=== PATIENT | male | born 1960 | race Caucasian/White ===

== ENCOUNTER 2019-04-20 15:58 | Inpatient (IN) ==
[2019-04-20] MEDS ORDERED: DIPRIVAN 1% ONE (17:35)
[2019-04-20] MEDS ORDERED: AMIDATE ONE (17:35)
[2019-04-20] MEDS ORDERED: DIPRIVAN 1% IV ONE ×2 (17:42→18:50)
[2019-04-20] MEDS ORDERED: QUELICIN ONE (17:43)
--- NOTE | 2019-04-20 17:49 | PROVIDER DOCUMENTATION ---
[id number] Abuse/Overdose - General Chief Complaint: Overdose Stated Complaint: DELIRIUM Time Seen by Provider: 04/20/19 17:40 Source: EMS Unable to obtain history due to:: altered Allergies/Adverse Reactions: Allergies Allergy/AdvReac Type Severity Reaction Status Date / Time Penicillins Allergy Unknown Verified 04/20/19 18:22 Home Medications: Home Medication List Medication Instructions Recorded Confirmed Last Taken Type Unobtainable [Home Meds 04/20/19 04/20/19 Unknown History Unobtainable] - History of Present Illness-Drug/Alcohol Nature of Presenting Problem: EMS reports that they were called to the patients home and 1500 today, and patient was acting nonsensical and destructive. The patients ex- reports that he does meth regularly and she believed that he had done meth and cocaine today. The ex- also reported that he has a prescription for opioids. The patient required some sedation via EMS with 500mg of ketamine. On arrival the patient was sedated but saturating >90%. On transfer to the room the patient woke up from sedation and was severely agitated and there was concern he would hurt himself or staff so patient was intubated. This episode of drinking or use began:: other (Today) - Substance Abuse Substance Use: reports: alcohol, marijuana, amphetamines Review of Systems - Adult - REVIEW OF SYSTEMS - ADULT ROS:: unobtainable per condition Constitutional: reports: other (unable to obtain per condition) Past History - Adult - PAST MEDICAL HISTORY-ADULT Review of Records: reports: Old Records Reviewed Physical Exam-General - PHYSICAL EXAM-ADULT Initial Vital Signs Reviewed: Yes - CONSTITUTIONAL General Appearance: obtunded - EYES Eyes: other (pupils equal, no scleral icterus) - HEAD, EARS, NOSE, MOUTH & THROAT HENMT: moist mucous membranes - NECK Neck: normal inspection - CARDIOVASCULAR Cardiovascular: regular rate, rhythm, other (2+ LE edema) - SKIN Integumentary: normal color, other (diaphoretic) - NEUROLOGIC Neurologic: grossly normal - PSYCHIATRIC Psych/Mental Status: other (agitated and requiring) Progress - PLAN OF CARE/RESULTS Progress/Plan/Lab Results: Vital Signs - 8 hr 04/20/19 17:05 04/20/19 17:38 04/20/19 17:39 Temperature 98.6 F Pulse Rate 98 H Respiratory Rate 15 Blood Pressure 110/60 139/63 O2 Sat by Pulse Oximetry 100 99 99 04/20/19 17:40 04/20/19 17:42 04/20/19 17:44 Temperature Pulse Rate 114 H 112 H 109 H Respiratory Rate 14 35 H 18 Blood Pressure 139/59 148/60 131/51 O2 Sat by Pulse Oximetry 100 100 99 04/20/19 17:46 04/20/19 17:48 04/20/19 17:50 Temperature Pulse Rate 106 H 107 H 106 H Respiratory Rate 18 19 23 Blood Pressure 125/53 119/51 85/52 O2 Sat by Pulse Oximetry 99 99 96 04/20/19 17:52 04/20/19 17:54 04/20/19 17:56 Temperature Pulse Rate 107 H 108 H 105 H Respiratory Rate 19 19 18 Blood Pressure 105/55 131/58 120/61 O2 Sat by Pulse Oximetry 96 100 100 04/20/19 18:00 04/20/19 18:02 Temperature Pulse Rate 103 H Respiratory Rate 18 Blood Pressure 108/54 O2 Sat by Pulse Oximetry 100 98 Laboratory Results - last 24 hr 04/20/19 04/20/19 04/20/19 18:15 18:15 18:15 WBC 7.35 RBC 4.16 L Hgb 12.0 L Hct 35.1 L MCV 84.4 MCH 28.8 MCHC 34.2 RDW Std Deviation 15.0 H Plt Count 96 L MPV 10.1 Immature Gran % (Auto) 0.0 Neut % (Auto) 82.6 H Lymph % (Auto) 9.1 L Houghton % (Auto) 6.4 Eos % (Auto) 1.6 Baso % (Auto) 0.3 Immature Gran # (Auto) 0.00 Neut # (Auto) 6.07 Lymph # (Auto) 0.67 L Houghton # (Auto) 0.47 Eos # (Auto) 0.12 Baso # (Auto) 0.02 Sodium 140 Potassium 4.3 Chloride 103 Carbon Dioxide 17 L Anion Gap 20 BUN 21 Creatinine 1.4 H Estimated GFR/1.73 m2 45 BUN/Creatinine Ratio 15 Glucose 117 H Calculated Osmolality 283 Calcium 8.7 L Total Bilirubin 1.46 H AST 102 H ALT 53 H Alkaline Phosphatase 78 Troponin T < 0.010 Total Protein 6.4 Albumin 3.8 Globulin 2.6 Albumin/Globulin Ratio 1.5 Plasma Lactate 04/20/19 18:15 WBC RBC Hgb Hct MCV MCH MCHC RDW Std Deviation Plt Count MPV Immature Gran % (Auto) Neut % (Auto) Lymph % (Auto) Houghton % (Auto) Eos % (Auto) Baso % (Auto) Immature Gran # (Auto) Neut # (Auto) Lymph # (Auto) Houghton # (Auto) Eos # (Auto) Baso # (Auto) Sodium Potassium Chloride Carbon Dioxide Anion Gap BUN Creatinine Estimated GFR/1.73 m2 BUN/Creatinine Ratio Glucose Calculated Osmolality Calcium Total Bilirubin AST ALT Alkaline Phosphatase Troponin T Total Protein Albumin Globulin Albumin/Globulin Ratio Plasma Lactate 6.1 H* Orders Category Date Time Status Cardiac Monitoring DIRECTED Care 04/20/19 19:08 Active Stewart Cath Insertion ORDERED Care 04/20/19 19:12 Active IV Insertion ORDERED Care 04/20/19 19:08 Active IV Insertion ORDERED Care 04/20/19 19:12 Active Intake and Output-Strict ORDERED Care 04/20/19 19:12 Active Notify MD of + Sepsis Screen NOW Care 04/20/19 19:08 Active Notify MD/PA/[employer]PER[employer]OR for exam NOW Care 04/20/19 19:12 Active Notify Physician As Ordered Care 04/20/19 19:08 Active Repeat Vital Signs .Blood Pressure Care 04/20/19 19:12 Active Repeat Vital Signs .Heart Rate Care 04/20/19 19:12 Active Repeat Vital Signs .Oxygen Saturation Care 04/20/19 19:12 Active Repeat Vital Signs .Respiratory Rate Care 04/20/19 19:12 Active Repeat Vital Signs .Temp Care 04/20/19 19:12 Active CHEST-PORTABLE [RAD] Stat Exams 04/20/19 17:41 Completed cxr [CHEST-1 VIEW] [RAD] Stat Exams 04/20/19 18:26 Completed ABG [RESP] Routine Lab 04/20/19 19:09 Ordered BLOOD CULTURE [BLDCUL] Stat Lab 04/20/19 18:23 Ordered BLOOD CULTURE [BLDCUL] Stat Lab 04/20/19 19:08 Uncollected CBC WITH DIFF [HEME] Stat Lab 04/20/19 18:15 Completed CBC WITH DIFF [HEME] Stat Lab 04/20/19 19:08 Uncollected CK PROFILE [SP CHEM] Stat Lab 04/20/19 19:08 Uncollected COMPREHENSIVE METABOLIC PANEL [CHEM] Stat Lab 04/20/19 18:15 Completed COMPREHENSIVE METABOLIC PANEL [CHEM] Stat Lab 04/20/19 19:08 Uncollected LACTATE, PLASMA [CHEM] Q3H Lab 04/20/19 19:15 Uncollected LACTATE, PLASMA [CHEM] Q3H Lab 04/20/19 22:15 Uncollected LACTATE, PLASMA [CHEM] Q3H Lab 04/21/19 01:15 Uncollected LACTATE, PLASMA [CHEM] Stat Lab 04/20/19 18:15 Completed LACTATE, PLASMA [CHEM] Timed Lab 04/20/19 19:12 Uncollected MAGNESIUM [CHEM] Stat Lab 04/20/19 19:08 Uncollected PROTIME WITH INR [COAG] Stat Lab 04/20/19 19:08 Uncollected PTT [COAG] Stat Lab 04/20/19 19:08 Uncollected TROPONIN T Stat Lab 04/20/19 18:15 Completed TROPONIN T Stat Lab 04/20/19 19:08 Uncollected URINALYSIS W/POSS RFLX CULT [URINALYSIS] Stat Lab 04/20/19 19:08 Uncollected URINE DRUG SCREEN Stat Lab 04/20/19 17:52 Uncollected 0.9% Sodium Chloride Inj [Ns] 1,000 ml Med 04/20/19 19:05 Active IV 999 mls/hr 0.9% Sodium Chloride Inj [Ns] 1,000 ml Med 04/20/19 19:10 Discontinued IV As Directed mls/hr 0.9% Sodium Chloride Inj [Ns] 100 ml Med 04/20/19 19:15 Active Vasopressin [Pitressin] 40 unit IV As Directed mls/hr 0.9% Sodium Chloride Inj [Ns] 500 ml Med 04/20/19 19:10 Active IV 999 mls/hr 0.9% Sodium Chloride Inj [Ns] 80 ml Med 04/20/19 18:45 Active Fentanyl 1,000 microgm IV As Directed mls/hr CefEPIME [Maxipime] 2 gm Med 04/20/19 19:10 Active 0.9% Sodium Chloride Inj [Ns] 100 ml IV NOW Dextrose 5%-0.45% NaCl Inj [D5 1/2 Ns] 250 ml Med 04/20/19 19:15 Active Norepinephrine [Levophed] 8 mg IV As Directed mls/hr Dextrose 5%-Water Inj [D5w] 250 ml Med 04/20/19 19:15 Active Epinephrine 8 mg IV As Directed mls/hr Etomidate [Amidate] Med 04/20/19 17:51 Discontinued 10 mg IV NOW ONE Etomidate [Amidate] Med 04/20/19 17:35 Discontinued 40 mg .ROUTE .STK-MED ONE Propofol [Diprivan 1%] Med 04/20/19 17:42 Discontinued 100 mg IV STAT ONE Propofol [Diprivan 1%] Med 04/20/19 18:50 Discontinued 100 mg IV STAT ONE Propofol [Diprivan 1%] Med 04/20/19 17:35 Discontinued 200 mg .ROUTE .STK-MED ONE Propofol [Diprivan 1%] Med 04/20/19 17:45 Active 1,000 mg in 100 ml IV As Directed mls/hr Succinylcholine [Quelicin] Med 04/20/19 17:54 Discontinued 100 mg IV NOW ONE Succinylcholine [Quelicin] Med 04/20/19 17:43 Discontinued 200 mg .ROUTE .STK-MED ONE Vancomycin 1 gm/Ns Med 04/20/19 19:12 Active 1 gm in 250 ml IV NOW Oxygen Device Stat Oth 04/20/19 19:08 Active Ventilator Order Stat Oth 04/20/19 18:00 Active EKG [EKG] Stat Ther 04/20/19 17:54 Ordered Result Diagrams: 04/20/19 18:15 04/20/19 18:15 - REASSESSMENT Reassessment #1 Status: other (Patient intubated and sedated. Patient underwent successful intubation. Continuing sedation with propofol. Labs testing pending.) Reassessment #2 Status: other (Pt awoke from sedation and needed restraining and further propofol at approximately 18:45. Patient sedated with fentynl and propofol drip. Lactate noted at 6.1 with tachycardia. Patient placed in sepsis protocol and abx and fluids given. Case discussed with hospitalist and patient accepted for admission.) Procedures - INTUBATION Time of Intubation: 17:40 Intubation Method: orotracheal Equipment: ETT Tube Size (cm): 8.0 Pretreated with 100% Oxygen?: Yes Breath Sounds after Intubation: equal ETT Primary Tube Confirmation: Capnometry CO2 Change, Placement re-confirmed wit h CXR after reposition Intubation Complications: no complications Vent Settings: See Respiratory Therapy Notes Departure - Departure Date of Disposition Decision: 04/20/19 Time of Disposition Decision: 19:24 DIAGNOSIS: Drug abuse Altered mental state Qualifiers: Altered mental status type: unspecified Qualified Code(s): R41.82 - Altered mental status, unspecified Overdose Qualifiers: Encounter type: initial encounter Injury intent: undetermined intent Qualified Code(s): T50.904A - Poisoning by unspecified drugs, medicaments and biological substances, undetermined, initial encounter Disposition: ADMITTED INPATIENT 09 Certified Medical Emergency: Emergent Condition: Serious - Critical Care Note This patient required my direct & personal management of CC.: Yes Attestation - Physician/ MACARIO Attestation Patient care was provided by Advanced Practice Provider:: No The physician spent face to face time with patient:: Yes Advanced Practice Provider documentation review:: Supervising physician onsite a nd consulted in the evaluation and care of this patient. The physician did have a face to face encounter with the patient.
[2019-04-20] MEDS ORDERED: AMIDATE IV ONE (17:51)
[2019-04-20] MEDS ORDERED: QUELICIN IV ONE (17:54)
--- NOTE | 2019-04-20 18:00 | Diag Imaging Result Doc PS360 ---
EXAM: CHEST-PORTABLE 04/20/2019 HISTORY: ET tube placement TECHNIQUE: AP portable at 1752 COMMENT: There is an endotracheal tube with its tip at the thoracic inlet and an NG tube which passes to the level of the esophagogastric junction. This is not clearly in the stomach. The inspiration is suboptimal. There is no definite evidence of focal pulmonary opacity. The heart size and primary vascularity are within normal limits. IMPRESSION: NG tube not completely in the stomach. Endotracheal tube in good position. Electronically signed by uRsh Cortes 04/20/2019 5:57 PM
[2019-04-20] MEDS: DIPRIVAN 1% 1,000 MG/100 ML BOTTLE IV SCH ×2 (18:02→23:04)
[2019-04-20 18:43] LABS: BASO# 0.02 X1000 (0.0-0.2); BASO% 0.3 % (0.0-0.8); EOS# 0.12 X1000 (0.0-0.7); EOS% 1.6 % (0.0-10.0); HEMATOCRIT 35.1 % (42.0-52.0); LYMPH# 0.67 X1000 (1.2-3.4); LYMPH% 9.1 % (20.5-51.1); MCH 28.8 PG (27-31); MCHC 34.2 g/dL (33-37); MCV 84.4 FL (81-99); MONO# 0.47 X1000 (0.11-0.59); MONO% 6.4 % (1.7-9.3); MPV 10.1 FL (7.4-10.4); NEUT# 6.07 X1000 (1.4-6.5); NEUT% 82.6 % (42.2-75.2); PLT 96 X1000 (130-400); RBC 4.16 XMIL (4.7-6.1); WBC 7.35 X1000 (4.8-10.8)
--- NOTE | 2019-04-20 18:52 | Diag Imaging Result Doc PS360 ---
EXAM: CHEST-1 VIEW 04/20/2019 HISTORY: Confirm NG tube placement TECHNIQUE: AP portable at 1845 COMMENT: The NG tube tip is in the fundus of the stomach. Otherwise the appearance the chest has not changed significantly since the previous study at 1752. IMPRESSION: NG tube in the stomach. Electronically signed by Rush Cortes 04/20/2019 6:49 PM
[2019-04-20 18:53] LABS: ALB/GLOB RATIO 1.5; ALBUMIN 3.8 g/dL (3.5-5.0); CALCIUM 8.7 mg/dL (8.8-10.2); CREATININE 1.4 mg/dL (0.7-1.2); POTASSIUM 4.3 mmol/L (3.5-5.1); TOTAL BILIRUBIN 1.46 mg/dL (0.20-1.00); TOTAL PROTEIN 6.4 g/dL (6.3-8.3)
[2019-04-20] MEDS ORDERED: NS 1,000 ML IV ONE ×3 (19:05→20:14)
[2019-04-20] MEDS ORDERED: NS 500 ML IV ONE (19:10)
[2019-04-20] MEDS ORDERED: MAXIPIME 2 GM in NS 100 ML IV ONE (19:10)
[2019-04-20] MEDS ORDERED: VANCOMYCIN 1 GM/NS 1 GM/250 ML IVPB IV ONE (19:12)
[2019-04-20] MEDS ORDERED: PITRESSIN 40 UNIT in NS 100 ML IV SCH (19:15)
[2019-04-20] MEDS ORDERED: EPINEPHRINE 8 MG in D5W 250 ML IV SCH (19:15)
[2019-04-20] MEDS ORDERED: LEVOPHED 8 MG in D5 1/2 NS 250 ML IV SCH (19:15)
[2019-04-20 19:24] LABS: ALLEN TEST YES; BE -6.1 mmoll (-3.0-3.0); BLOOD TYPE ARTERIAL; HCO3-(ACT) 20.2 mmoll (20.0-26.0); METHB 0.9 % (0.0-1.5); O2HB 97.6 % (95.0-99.0); PCO2(98.6) 42 mmHg (35-45); PO2(98.6) 285 mmHg (60-100); SAMPLE BLOOD; SAO2 100.5 % (95.0-100.0); SRATE 18 BPM; THB 11.1 g/dL (11.5-17.4); TVOL 500 mL; pH(98.6) 7.29 (7.35-7.45)
[2019-04-20 19:26] LABS: MODALITY VENTILATOR
[2019-04-20 19:48] LABS: URINE SOURCE CATH
[2019-04-20 19:55] LABS: BILIRUBIN URINE NEGATIVE (NEGATIVE); BLOOD URINE MODERATE (NEGATIVE); COLOR YELLOW; GLUCOSE URINE NEGATIVE (NEGATIVE); KETONE URINE NEGATIVE (NEGATIVE); LEUKOCYTES URINE NEGATIVE (NEGATIVE); NITRITE URINE NEGATIVE (NEGATIVE); PH URINE 5.5; PROTEIN URINE 30 mg/dL (NEGATIVE); TURBIDITY URINE HAZY (CLEAR); UROBILINOGEN URINE NORMAL (NORMAL)
[2019-04-20 20:02] LABS: UR EPITHELIAL CELLS <10 /HPF (<10); URINE BACTERIA NEGATIVE /HPF; URINE RBC 20-40 /HPF (<10); URINE WBC 20-40 /HPF (<10)
[2019-04-20 20:06] LABS: UR AMPHETAMINES QUAL PRESUMPTIVE POSITIVE (NONE DETECT); UR BARBITUATES QUAL NONE DETECTED (NONE DETECT); UR BENZODIAZEPIN QUAL NONE DETECTED (NONE DETECT); UR CANNABINOIDS QUAL NONE DETECTED (NONE DETECT); UR COCAINE QUAL PRESUMPTIVE POSITIVE (NONE DETECT); UR METHADONE QUAL NONE DETECTED (NONE DETECT); UR OPIATES QUAL PRESUMPTIVE POSITIVE (NONE DETECT); UR OXYCODONE QUAL NONE DETECTED (NONE DETECT); UR PCP QUAL NONE DETECTED (NONE DETECT)
[2019-04-20] MEDS ORDERED: ZOFRAN IV PRN (20:14)
[2019-04-20 21:01] LABS: INR 1.24; PROTIME 15.8 Seconds (11.0-16.0)
[2019-04-20 21:06] LABS: ALB/GLOB RATIO 1.6; ALBUMIN 3.7 g/dL (3.5-5.0); CALCIUM 8.2 mg/dL (8.8-10.2); CREATININE 1.5 mg/dL (0.7-1.2); MAGNESIUM 2.6 mg/dL (1.5-2.7); POTASSIUM 4.8 mmol/L (3.5-5.1); TOTAL BILIRUBIN 1.59 mg/dL (0.20-1.00)
[2019-04-20] MEDS ORDERED: HALDOL IV ONE (21:11)
[2019-04-20 21:33] LABS: PTT 29.1 Seconds (22.3-41.8)
--- NOTE | 2019-04-20 21:43 | Diag Imaging Result Doc PS360 ---
EXAM: CHEST-1 VIEW 04/20/2019 HISTORY: Check ET tube placement. TECHNIQUE: AP portable at 2135 COMMENT: There is an endotracheal tube with its tip slightly below the thoracic inlet and an NG tube which passes below the diaphragm. Compared to 04/20/2019 at 1845 there has been no appreciable change. IMPRESSION: Stable chest. Electronically signed by Rush Cortes 04/20/2019 9:41 PM
[2019-04-20 21:48] LABS: CK INDEX 0.4 (0.0-2.5); CK-MB 14.14 ng/mL (0.0-5.0)
--- NOTE | 2019-04-20 22:10 | Diag Imaging Result Doc PS360 ---
EXAM: CT HEAD W/O CONTRAST 04/20/2019 HISTORY: AMS TECHNIQUE: This exam was performed using automated exposure control, adjustment of mA or kV according to patient size, and/or use of iterative reconstruction technique. COMMENT: There is no evidence of mass effect, bleed, or abnormal extra-axial fluid collection. The calvarium is intact. The visualized paranasal sinuses are clear. IMPRESSION: No evidence of acute intracranial disease. Electronically signed by Rush Cortes 04/20/2019 10:07 PM
--- NOTE | 2019-04-20 22:29 | HISTORY AND PHYSICAL ---
HISTORY OF PRESENT ILLNESS: This male of unknown age was retrieved via EMS at the request of apparently his ex- who stated that he was acting crazy. He is a known user of meth and opioids according to her and had apparently ingested meth and cocaine today along with his opioids. He required ketamine in route by EMS. He arrived here. He presented himself as a danger to himself and others, thrashing about the bed and fighting. He was sedated, paralyzed and intubated successfully. When they came in to do the chest x-ray and lifted him up, he again woke up and began to fight. He pulled his tube out and had to be re-intubated and then was put on a fentanyl and propofol drip. An hour or so after that incident, despite being on max doses of propofol and the fentanyl, he was again awake and fighting. We are attempting to sedate him with other means using Haldol and whatever else was necessary. There was no family present with this man. We do not know his age. We do not know his identity nor do we know any medical history as a result of that. PAST MEDICAL HISTORY: Unknown. SOCIAL HISTORY: Drug abuse. Likely tobacco abuse. Likely alcohol abuse. ALLERGIES: Unknown. REVIEW OF SYSTEMS: Not possible. PHYSICAL EXAMINATION: GENERAL: He is a thin, white male who is sedated on the ventilator. He has blood around his mouth and I was informed that this occurred as a result of the trauma of him thrashing about and pulling his ET tube out the 1st time. He apparently did not present with blood around his mouth and in his herrera. EYES: Sclerae are anicteric. Pupils are pinpoint. LUNGS: Clear to auscultation. He is breathing without difficulty on the ventilator. CARDIOVASCULAR: Regular approximately 86 beats per minute, according the monitor. ABDOMEN: Shows bowel sounds are present. EXTREMITIES: Show no peripheral edema. : Stewart bag shows some cloudy urine, but is otherwise unremarkable. LABORATORIES: White blood cells 7.35, hemoglobin 12.0, INR is 1.2. After being intubated, his ABG showed a pH of 7.29, pCO2 42, PO2 of 285, and O2 saturation 100%. It was noted that he had an elevated lactate. The plasma lactate was 2.6. Total bilirubin 1.59. Urinalysis had some white cells and red cells in it. Urine drug screen showed opioids, amphetamines and cocaine positivity. It is noted that the patient's CK was 3446. CK-MB was pending at time of dictation. ASSESSMENT AND PLAN: 1. We will try and keep the patient sedated overnight. He will remain on the ventilator as long as possible to hopefully get his sensorium cleared over the next 24 to 48 hours. This appears to be a case of drug abuse rather than an intentional overdose any type. 2. The patient was tachycardic and had an elevated plasma lactate and was started on sepsis protocol as a result. 3. Noted is the patient has elevated CK. We will recheck this in the morning along with a BUN and creatinine. Carbon dioxide level is a little bit low. He appears to be a bit dry. We will continue IV fluids in that regard. 4. We will put the patient in intermittent compression boots for deep venous thrombosis prophylaxis and also as a means of tethering him further. cc: Charles Espitia MD
[2019-04-20 23:19] LABS: ALLEN TEST YES; BE -3.3 mmoll (-3.0-3.0); BLOOD TYPE ARTERIAL; HCO3-(ACT) 22.4 mmoll (20.0-26.0); METHB 1.4 % (0.0-1.5); O2(CT) 14.6 mL/dL (15.0-23.0); O2HB 96.7 % (95.0-99.0); PCO2(98.6) 40 mmHg (35-45); PO2(98.6) 147 mmHg (60-100); SAMPLE BLOOD; SAO2 99.4 % (95.0-100.0); SRATE 18 BPM; THB 10.5 g/dL (11.5-17.4); TVOL 500 mL; pH(98.6) 7.35 (7.35-7.45)
[2019-04-20 23:20] LABS: MODALITY VENTILATOR
--- NOTE | 2019-04-21 | EKG Report ---
Test Performed on : 04/20/2019 9:27:18 PM Test Reason : OVERDOSE Blood Pressure : / mmHG Vent. Rate : 098 BPM Atrial Rate : 098 BPM P-R Int : 138 ms QRS Dur : 094 ms QT Int : 420 ms P-R-T Axes : 065 039 051 degrees QTc Int : 536 ms Normal sinus rhythm. Nonspecific ST abnormality Prolonged QT Abnormal ECG No previous ECGs available Unconfirmed Result
[2019-04-21] MEDS: DIPRIVAN 1% 1,000 MG/100 ML BOTTLE IV SCH ×9 (00:58→23:39)
[2019-04-21] MEDS: FENTANYL 1,000 MICROGM in NS 80 ML IV SCH ×3 (00:59→20:31)
[2019-04-21 06:32] LABS: BASO# 0.01 X1000 (0.0-0.2); BASO% 0.2 % (0.0-0.8); EOS# 0.07 X1000 (0.0-0.7); EOS% 1.7 % (0.0-10.0); HEMATOCRIT 30.8 % (42.0-52.0); HEMOGLOBIN 10.4 g/dL (14.0-18.0); LYMPH# 0.75 X1000 (1.2-3.4); LYMPH% 18.2 % (20.5-51.1); MCH 29.1 PG (27-31); MCHC 33.8 g/dL (33-37); MONO# 0.39 X1000 (0.11-0.59); MONO% 9.4 % (1.7-9.3); MPV 10.2 FL (7.4-10.4); NEUT# 2.91 X1000 (1.4-6.5); NEUT% 70.5 % (42.2-75.2); PLT 72 X1000 (130-400); RBC 3.58 XMIL (4.7-6.1); RDW 15.4 % (11.5-14.5); WBC 4.13 X1000 (4.8-10.8)
[2019-04-21 06:37] LABS: ALB/GLOB RATIO 1.3; ALBUMIN 3.1 g/dL (3.5-5.0); CREATININE 1.2 mg/dL (0.7-1.2); MAGNESIUM 2.6 mg/dL (1.5-2.7); PHOSPHORUS 3.5 mg/dL (2.7-4.5); POTASSIUM 4.2 mmol/L (3.5-5.1); TOTAL BILIRUBIN 1.08 mg/dL (0.20-1.00); TOTAL PROTEIN 5.5 g/dL (6.3-8.3)
--- NOTE | 2019-04-21 07:10 | Diag Imaging Result Doc PS360 ---
EXAM: CHEST-PORTABLE 04/21/2019 HISTORY: ETT TECHNIQUE: AP portable at 0543 COMMENT: There is an endotracheal tube with its tip at the thoracic inlet and an NG tube which passes below the diaphragm. The inspiration is suboptimal. The appearance of the chest has not changed significantly since 04/20/2019. IMPRESSION: Stable chest. Electronically signed by Rush Cortes 04/21/2019 7:08 AM
[2019-04-21] MEDS: NS 1,000 ML IV SCH ×3 (09:30→23:52)
--- NOTE | 2019-04-21 11:01 | Diag Imaging Result Doc PS360 ---
EXAM: CHEST/ABD TUBE PLACEMENT 04/21/2019 HISTORY: NG tube placement TECHNIQUE: AP portable chest and abdomen for NG tube placement COMMENT: The NG tube tip is in the fundus of the stomach. IMPRESSION: NG tube in the stomach. Electronically signed by Rush Cortes 04/21/2019 10:58 AM
--- NOTE | 2019-04-21 17:46 | PROGRESS NOTE ---
DATE: 04/21/2019 SUBJECTIVE: Mr. Quinonez is intubated. Story was he was found unconscious and then became very belligerent and was intubated and sedated. OBJECTIVE: Vital signs: Blood pressure 93/54, pulse 84, respirations 18. Lungs: Clear in all lung trevino. Cardiovascular: Regular rhythm and rate without murmur or S3. Abdomen: Soft. Skin: Warm and dry. Urine output is 2200 mL yesterday. DIAGNOSTIC STUDIES: Chest x-ray: Stable chest. There is an endotracheal tube. Tip is at the thoracic inlet. NG tube which passes below the diaphragm. NG tube to low wall suction. ASSESSMENT AND PLAN: I am not sure what happened. The patient was found unresponsive, suspect related to 2 medications or drugs. Appears to be hemodynamically stable. The patient has an elevated CK. His kidney function, creatinine came down from 1.5 to 1.2. His toxicology report was positive for cocaine and amphetamines and opiates. cc: Bigg Franco MD
--- NOTE | 2019-04-22 00:30 | CONSULTATION ---
DATE OF CONSULTATION: 04/21/2019 REQUESTING PROVIDER: Dr. Bigg Franco. REASON FOR CONSULTATION: Ventilator management. HISTORY OF PRESENT ILLNESS: This is a 58-year-old male with an unknown medical history, except polysubstance abuse. He was presented to the ER yesterday afternoon via EMS at the request of his ex- with agitation and aggressiveness. Upon arrival to the ER, the patient wake up from sedation and became severely agitated. He was eventually intubated for protection of himself and staff. Initial workup revealed drug abuse with urine drug screen positive to opioids, amphetamines, and cocaine. He also have elevated plasma lactate up to 6.1, elevated creatinine to 1.4, elevated liver enzymes, creatine kinase, and CK-MB. He has been admitted to the ICU for further evaluation and management. The patient currently is still intubated. He is sedated with fentanyl and Diprivan. He is on 4-point restraints with some dried blood around his mouth noted. There is no family at the bedside. All other information is obtained from the E-chart. PAST MEDICAL HISTORY: Unknown, except polysubstance abuse. SOCIAL HISTORY: Unknown about tobacco or alcohol use. Definitely has illicit drug use. FAMILY HISTORY: Unknown. ALLERGIES: Hydrocodone, penicillins. REVIEW OF SYSTEMS: Unable to be obtained. PHYSICAL EXAMINATION: Vital Signs: Temperature 98.7 degrees, blood pressure 109/57, pulse 81, respiratory rate 18, oxygen saturation 100% on AC mechanical ventilator with spontaneous rate 18, FiO2 40%, tidal volume 500, and PEEP 5. General: A well-developed, well- nourished, male lying in bed, intubated and sedated with fentanyl and Diprivan. No acute distress noted. He is on 4-point restraints. HEENT: Atraumatic, normocephalic. Trachea midline. ET tube in place. Some dried blood noted around the mouth and nose. Respiratory: Mechanically ventilated. Symmetrical excursion. Clear to auscultation bilaterally. Cardiovascular: Regular rate and rhythm. Gastrointestinal: Soft, nondistended. Normoactive bowel sounds in all 4 quadrants. Extremities: No pedal edema. No cyanosis. No clubbing. Dorsalis pedis 2+ bilaterally. Neurologic: Sedated, unresponsive to verbal stimuli. LAB DATA: White blood cell 4.13, hemoglobin 10.4, hematocrit 30.8, platelets 72,000. Sodium 145, potassium 4.2, chloride 112, carbon dioxide 21, BUN 23, creatinine 1.2. Glucose 105. ABG, pH is 7.35, pCO2 is 40, pO2 is 147, HCO3 is 22.4, base excess -3.3, and oxyhemoglobin 96.7. IMAGING DATA: Chest x-ray this morning showed stable chest with suboptimal inspiration. ASSESSMENT: This is a 58-year-old male with unknown medical history except polysubstance abuse. He has been admitted to the ICU with drug abuse. 1. Drug abuse. Urine drug screen showed positive to opioids, amphetamines and cocaine. 2. Altered mental status secondary to drug abuse. 3. Acute respiratory failure secondary to altered mental status and requirement of sedation. 4. Acute kidney injury, improving. PLAN: 1. Continue AC mechanical ventilator and we will start weaning trials when appropriate. 2. Currently continue sedation with fentanyl and Diprivan. 3. Follow up with ABG, CBC, BMP, chest x-ray, blood culture and urine culture. 4. Further recommendations pending hospital course. Thank you for the courtesy of this consult. Dictated by SONA Frost for Marisol Pollock MD cc: SONA Frost MD [facility]
[2019-04-22] MEDS: DIPRIVAN 1% 1,000 MG/100 ML BOTTLE IV SCH ×3 (01:31→07:39)
[2019-04-22] MEDS ORDERED: NS 1,000 ML IV ONE (02:52)
[2019-04-22] MEDS: FENTANYL 1,000 MICROGM in NS 80 ML IV SCH ×2 (03:56→09:38)
[2019-04-22 04:34] LABS: ALLEN TEST YES; BE -3.4 mmoll (-3.0-3.0); BLOOD TYPE ARTERIAL; HCO3-(ACT) 22.3 mmoll (20.0-26.0); METHB 1.5 % (0.0-1.5); O2(CT) 12.5 mL/dL (15.0-23.0); O2HB 96.3 % (95.0-99.0); PCO2(98.6) 25 mmHg (35-45); PO2(98.6) 132 mmHg (60-100); SAMPLE BLOOD; SAO2 99.6 % (95.0-100.0); SRATE 12 BPM; TVOL 500 mL; pH(98.6) 7.49 (7.35-7.45)
[2019-04-22 04:36] LABS: MODALITY VENTILATOR
[2019-04-22 05:18] LABS: BASO# 0.01 X1000 (0.0-0.2); BASO% 0.3 % (0.0-0.8); EOS# 0.05 X1000 (0.0-0.7); EOS% 1.6 % (0.0-10.0); HEMOGLOBIN 9.4 g/dL (14.0-18.0); LYMPH# 0.65 X1000 (1.2-3.4); LYMPH% 20.8 % (20.5-51.1); MCH 28.6 PG (27-31); MCHC 32.4 g/dL (33-37); MCV 88.1 FL (81-99); MONO# 0.27 X1000 (0.11-0.59); MONO% 8.7 % (1.7-9.3); MPV 10.5 FL (7.4-10.4); NEUT# 2.14 X1000 (1.4-6.5); NEUT% 68.6 % (42.2-75.2); PLT 79 X1000 (130-400); RBC 3.29 XMIL (4.7-6.1); RDW 15.2 % (11.5-14.5); WBC 3.12 X1000 (4.8-10.8)
[2019-04-22 05:50] LABS: ESTIMATED GFR > 60
[2019-04-22 06:06] LABS: AGAP 8; BUN 24 mg/dL (8-22); CHLORIDE 113 mmol/L (98-107); COSMO 286; CREATININE 0.9 mg/dL (0.7-1.2); GLUCOSE 83 mg/dL (70-104); POTASSIUM 3.9 mmol/L (3.5-5.1); SODIUM 142 mmol/L (136-145); TCO2 21 mmol/L (25-35)
[2019-04-22] MEDS ORDERED: CALCIUM GLUCONATE 1 GM in NS 50 ML IV ONE (06:23)
[2019-04-22] MEDS ORDERED: HALDOL IV PRN (06:34)
--- NOTE | 2019-04-22 07:09 | Diag Imaging Result Doc PS360 ---
EXAM: CHEST-1 VIEW 04/22/2019 HISTORY: SOB TECHNIQUE: AP portable at 0523 COMMENT: There is an endotracheal tube with its tip approximately 3 cm above the paola and an NG tube with its tip below the diaphragm presumably in the stomach. There is minimally increased interstitial opacity particularly in the right lower lobe. This is slightly worse than on 04/21/2019. IMPRESSION: Minimal pulmonary edema. Electronically signed by Rush Cortes 04/22/2019 7:07 AM
[2019-04-22] MEDS: PRECEDEX 200 MICROGM in NS 48 ML IV SCH ×6 (07:59→22:55)
[2019-04-22 10:52] LABS: ALLEN TEST NO; BE -4.4 mmoll (-3.0-3.0); BLOOD TYPE ARTERIAL; HCO3-(ACT) 21.5 mmoll (20.0-26.0); METHB 0.9 % (0.0-1.5); O2(CT) 13.9 mL/dL (15.0-23.0); PCO2(98.6) 39 mmHg (35-45); PO2(98.6) 89 mmHg (60-100); SAMPLE BLOOD; SAO2 98.7 % (95.0-100.0); THB 10.2 g/dL (11.5-17.4); pH(98.6) 7.34 (7.35-7.45)
[2019-04-22 10:53] LABS: MODALITY VENTILATOR
--- NOTE | 2019-04-22 18:11 | PROGRESS NOTE ---
DATE: 04/22/2019 PLAN: He was extubated and he pulled his NG tube out, so I will start him on some regular food. He seems to be swallowing liquids okay. OBJECTIVE: Vital signs stable, hemodynamically stable. Lungs are clear in all lung trevino. Cardiovascular exam: Regular rate without murmur or S3. Abdomen is soft. Skin is warm and dry. He seems to be waking up well, and good air and gas exchange. See if he can possibly go home tomorrow and see how he does. cc: Bigg Franco MD
[2019-04-23] MEDS: PRECEDEX 200 MICROGM in NS 48 ML IV SCH ×3 (01:08→06:23)
[2019-04-23 04:50] LABS: ALLEN TEST YES; BE -2.9 mmoll (-3.0-3.0); BLOOD TYPE ARTERIAL; HCO3-(ACT) 22.5 mmoll (20.0-26.0); O2(CT) 20.3 mL/dL (15.0-23.0); O2HB 91.4 % (95.0-99.0); PCO2(98.6) 34 mmHg (35-45); PO2(98.6) 61 mmHg (60-100); SAMPLE BLOOD; SAO2 94.6 % (95.0-100.0); THB 15.8 g/dL (11.5-17.4)
[2019-04-23 04:52] LABS: MODALITY ROOM AIR
[2019-04-23 07:12] LABS: BASO# 0.01 X1000 (0.0-0.2); BASO% 0.5 % (0.0-0.8); EOS# 0.02 X1000 (0.0-0.7); HEMOGLOBIN 9.6 g/dL (14.0-18.0); LYMPH# 0.49 X1000 (1.2-3.4); LYMPH% 23.6 % (20.5-51.1); MCH 28.7 PG (27-31); MCHC 33.1 g/dL (33-37); MCV 86.8 FL (81-99); MONO# 0.16 X1000 (0.11-0.59); MONO% 7.7 % (1.7-9.3); MPV 10.6 FL (7.4-10.4); NEUT% 67.2 % (42.2-75.2); PLT 81 X1000 (130-400); RBC 3.34 XMIL (4.7-6.1); RDW 14.9 % (11.5-14.5); WBC 2.08 X1000 (4.8-10.8)
[2019-04-23 07:59] LABS: AGAP 12; BUN 22 mg/dL (8-22); CALCIUM 7.3 mg/dL (8.8-10.2); CHLORIDE 114 mmol/L (98-107); COSMO 292; ESTIMATED GFR > 60; GLUCOSE 92 mg/dL (70-104); POTASSIUM 4.5 mmol/L (3.5-5.1); SODIUM 145 mmol/L (136-145); TCO2 19 mmol/L (25-35)
--- NOTE | 2019-04-23 08:34 | Diag Imaging Result Doc PS360 ---
EXAM: CHEST-1 VIEW INDICATION: SOB TECHNIQUE: One view COMPARISON: 04/22/2019 FINDINGS: There has been interval extubation and removal of the NG tube. Pulmonary venous congestion and pulmonary edema has probably marginally improved during the interval. No new consolidation is identified. Cardiac silhouette is stable. IMPRESSION: Interval removal of ET tube and NG tube and marginal improvement of pulmonary edema. Electronically signed by Dhruv Osei 04/23/2019 8:32 AM
[2019-04-23] MEDS ORDERED: BLISTEX MEDICATED BERRY LIP BALM TOP PRN (10:45)
--- NOTE | 2019-04-23 11:57 | PROVIDER PROGRESS NOTE ---
Progress Note Additional Pulmonary note: Extubated and tolerated. We will see as needed. Please re-consult if deemed necessary.
--- NOTE | 2019-04-23 13:21 | PROGRESS NOTE ---
DATE: 04/23/2019 This is a 58-year-old who is doing better, able to take him off restraints. He has been extubated. Still has Stewart catheter in. OBJECTIVE: Vital Signs: He remains afebrile, temperature 98.5 degrees, pulse 83, respirations 22, blood pressure 131/74. HEENT: Pupils are equal and round. Lungs: Are clear in all lung trevino. Cardiovascular: Regular rhythm and rate without murmur or S3. Abdomen: Is soft. Skin: Is warm and dry. Urine output 2000 mL. ASSESSMENT AND PLAN: Chest x-ray, interval removal of ET tube, marginal improvement of pulmonary edema. The patient's respiratory status looks good and he is extubated. Suspect drug abuse. Drug screen positive for opioids, amphetamines and cocaine. Altered mental status due to drug use, acute respiratory failure secondary to altered mental status. Acute kidney injury, resolved, so we will increase his activity, DC his Stewart catheter. He uses bedside commode and maybe he can go home tomorrow. cc: Bigg Franco MD
[2019-04-23] MEDS ORDERED: NICODERM PATCH TD ONE (23:00)
[2019-04-24 06:38] LABS: BASO# 0.02 X1000 (0.0-0.2); BASO% 0.7 % (0.0-0.8); EOS# 0.06 X1000 (0.0-0.7); EOS% 2.1 % (0.0-10.0); HEMATOCRIT 30.7 % (42.0-52.0); HEMOGLOBIN 10.3 g/dL (14.0-18.0); MCH 28.7 PG (27-31); MCHC 33.6 g/dL (33-37); MCV 85.5 FL (81-99); MONO# 0.27 X1000 (0.11-0.59); MONO% 9.4 % (1.7-9.3); MPV 10.4 FL (7.4-10.4); NEUT# 1.91 X1000 (1.4-6.5); NEUT% 66.8 % (42.2-75.2); PLT 93 X1000 (130-400); RBC 3.59 XMIL (4.7-6.1); RDW 14.9 % (11.5-14.5); WBC 2.86 X1000 (4.8-10.8)
[2019-04-24 07:03] LABS: AGAP 10; BUN 13 mg/dL (8-22); CHLORIDE 108 mmol/L (98-107); COSMO 281; CREATININE 0.8 mg/dL (0.7-1.2); ESTIMATED GFR > 60; GLUCOSE 124 mg/dL (70-104); POTASSIUM 3.8 mmol/L (3.5-5.1); SODIUM 140 mmol/L (136-145); TCO2 22 mmol/L (25-35)
[2019-04-24] MEDS ORDERED: CALCIUM GLUCONATE 2 GM in NS 100 ML IV ONE (08:00)
--- NOTE | 2019-04-24 10:31 | DISCHARGE SUMMARY ---
ADMISSION DATE: 04/20/2019 DISCHARGE DATE: 04/24/2019 HOSPITAL COURSE: This is a 58-year-old male who came to the emergency room at the request of his ex- who said he was acting crazy. He is a known user of methamphetamines and opioids. Apparently, he had ingested some cocaine that day. By report, he required ketamine by the EMS. He presented himself. Appeared to be a danger to himself and others, threatening in the bed and fighting. He was sedated, paralyzed, and intubated successfully. Chest x-ray was obtained. He lifted up and began to fight again and very agitated, so was reintubated and put on fentanyl and a propofol drip. Moved to the unit. Past medical history, he does not really report any significant medical illness. He remained hemodynamically stable. Pulmonary was involved. We were able to extubate, able to take his Stewart catheter out. He was eating. His bowels were moving good and he was really insisting on going home. He does not want to pursue going anywhere. Of course, it was discussed with him the importance of getting off of methamphetamines and cocaine, and any other illicit drugs. He is not on any medication. We will plan to discharge him home. He does not have a primary care doctor. I encouraged him to find a primary care doctor and to get some followup. I will also recommended that he pursue rehab programs such as AA. cc: Bigg Franco MD
[2019-04-24 13:44] VITALS: BP 153/80
== END 2019-04-24 15:31 | disposition home or self-care (01) | DRG 917 ==
LOC: ED 15:58 → MERGE 21:30 → SUATTDRO 21:30 → EDBD 21:30 → EDIPHOLD 21:30 → ICU 04-21 08:34
PROVIDERS: ATTEND Emergency Medicine